=== PATIENT | female | born 1950 | race Hispanic/Latino ===

== ENCOUNTER 2017-12-01 00:55 | Emergency (ER) | payer MEDICARE, OTHER ==
[2017-12-01 00:55] VITALS: PULSE 74
[2017-12-01 01:03] VITALS: BMI 26.6
[2017-12-01 01:04] VITALS: BP 0/0; PULSE 0; RESP 12; O2SAT 100
--- NOTE | 2017-12-01 01:07 | C.PDOC ---
History Of Present Illness 67 year old female brought in by ALS for cardiac arrest. Patient was found unresponsive at home. 911 was called. Possible 20 minutes of down time before ALS arrived. Patient was found to be in V fib, defibrillated once and given 2 epi, with return of spontaneous circulation. After patient became asystolic again and received 3 more epi. CPR in progress upon arrival, patient still asystolic. Time Seen by Provider: 12/01/17 01:07 Chief Complaint (Nursing): Cardiac Arrest History Per: EMS Reason For Code Blue: Full Arrest Circumstances: Brought To ED By EMS Arrest Witnessed By: No One CPR Initiated Prior To MD Arrival?: Yes Down-Time Before ACLS: Mins (20) Treatment Initiated Prior To MD Arrival: Yes: CPR, Intubation, Defibrillation, IVF, ACLS Medication Initiation, IV Access (io) Medications Given Prior To MD Arrival: Yes: Epinephrine - Initial Findings Mentation: Unresponsive Respirations: None (Assisted) Pulse: None Rhythm: Asystole Past Medical History Reviewed: Historical Data, Nursing Documentation, Vital Signs Vital Signs: Last Vital Signs Temp Pulse 0 L 12/01/17 01:11 Resp 12 12/01/17 00:57 BP 0/0 L 12/01/17 00:57 Pulse Ox 100 12/01/17 02:03 - Medical History PMH: Anemia, Anxiety, Arthritis, Atrial Fibrillation, CAD, CHF, COPD, HTN, Hypercholesterolemia, Peripheral Edema Denies: HIV, Chronic Kidney Disease - [facility] ASSISTANCE WITH RESPIRATORY VENTILATION, 24-96 HRS, CPAP (08/01/15) DRAINAGE OF PERITONEAL CAVITY, PERCUTANEOUS APPROACH (01/24/17) GAIT TRAINING/FUNCTIONAL AMBULATION TREATMENT (08/08/15) HOME MANAGEMENT TREATMENT (08/08/15) INSERT INFUSION DEV IN R INT JUGULAR VEIN, PERC (10/17/17) INSERTION OF ENDOTRACHEAL AIRWAY INTO TRACHEA, VIA OPENING (10/17/17) INTRODUCE OF OTH ANTI-INFECT INTO PERIPH VEIN, PERC APPROACH (10/23/17) INTRODUCE OF OTH THERAP SUBST INTO RESP TRACT, VIA OPENING (08/08/15) INTRODUCE OTH ANTI-INFECT IN CENTRAL VEIN, PERC (10/17/17) INTRODUCTION OF SERUM/TOX/VACCINE INTO MUSCLE, PERC APPROACH (10/17/17) REMOVAL OF INTRALUMINAL DEVICE FROM TRACHEA, INFANT CAREGIVER APPROACH (10/17/17) RESPIRATORY VENTILATION, 24-96 CONSECUTIVE HOURS (10/17/17) THERAPEUTIC EXERCISE TREATMENT OF MUSCULOSK WHOLE (08/08/15) Family History: States: No Known Family Hx - Social History Hx Alcohol Use: No (unable to determine; sedated) 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 Physical Exam - Physical Exam Appears: In Acute Distress Skin: Dry, Pale Head: Normacephalic Eye(s): bilateral: Other (pupils fixed, dilated) Throat: Other (intubated) Neck: Supple, Other (intubated) Chest: Symmetrical Cardiovascular: Other (no spontaneous circulation) Respiratory: Rhonchi Gastrointestinal/Abdominal: Soft, Distention Back: Normal Inspection Extremity: Other (Right tibial IO) Extremity: Bilateral: Atraumatic ED Course And Treatment O2 Sat by Pulse Oximetry: 100 Pulse Ox Interpretation: Normal Progress Note: See code sheet. Time of pronounced at 1:07 am. Family at bedside throughout resuscitation attempt. Spoke with the and family about the patient's Disposition Counseled Patient/Family Regarding: Studies Performed, Diagnosis - Disposition Disposition: WITH WITHOUT AUTOPSY Disposition Time: 01:07 Condition: Forms: [facility] (Tunisian) - Clinical Impression Clinical Impression: Cardiac arrest, Asystole - Scribe Statement The provider has reviewed the documentation as recorded by the Mandyibsadaf Mejias Provider Attestation: All medical record entries made by the Mandyibe were at my direction and personally dictated by me. I have reviewed the chart and agree that the record accurately reflects my personal performance of the history, physical exam, medical decision making, and the department course for this patient. I have also personally directed, reviewed, and agree with the discharge instructions and disposition.
== END 2017-12-01 03:17 ==
LOC: C.ER 00:55
DX: I46.9 Cardiac arrest, cause unspecified (principal)